=== PATIENT | female | born 1965 | race Caucasian/White ===

== ENCOUNTER 2018-09-05 10:45 | Outpatient (CLI) | payer OTHER, SELFPAY ==
--- NOTE | 2018-09-05 11:00 | DI.RAD_ITS ---
SYMPTOMS/DIAGNOSIS: BACK PAIN, DISABILITY DETERMINATION LUMBAR SPINE: AP and lateral projections of the lumbar spine are provided. There is some straightening of the normal lumbar lordosis. The vertebral bodies are intact. There is disc space narrowing at L 3 - 4, L 4 - 5 and L 5 - S 1 where there is endplate sclerosis and mild hypertrophic spurring. Facet joint degenerative changes are noted at these levels. There is no evidence of spondylolysis or spondylolisthesis. The pedicle, spinous and transverse processes are intact. The sacrum and sacroiliac joints are unremarkable save for mild DJD. SUMMARY: Degenerative changes involving the lumbar spine as described above. Identified by photo ID
== END 2018-09-05 11:05 ==
PROVIDERS: PCP Physician Assistant; Visit Provider Pediatrics Pediatric Rheumatology
DX: M54.5 Low back pain (principal); M51.37 Other intervertebral disc degeneration, lumbosacral region; Z02.71 Encounter for disability determination
CPT/HCPCS: 72100